=== PATIENT | male | born 1965 | race African-American/Black ===

== ENCOUNTER 2018-07-14 16:43 | Inpatient (IN) | payer OTHER ==
[2018-07-14 17:42] VITALS: BMI 35.2
--- NOTE | 2018-07-14 20:21 | HP ---
CIWA Score Nausea/Vomitin Muscle Tremors: 3 Anxiety: 2 Agitation: 2 Paroxysmal Sweats: 2 Orientation: 0-Oriented Tacttile Disturbances: 2-Mild Itch/Numbness/Burn Auditory Disturbances: 2-Mild Harshness/Frighten Visual Disturbances: 1-Very Mild Sensitivity Headache: 1-Very Mild CIWA-Ar Total Score: 18 - Admission Criteria [facility]ASAS Guidelines: Admission for Medically Managed Detox: Requires at least one of the followin. CIWA greater than 12 2. Seizures within the past 24 hours 3. Delirium tremens within the past 24 hours 4. Hallucinations within the past 24 hours 5. Acute intervention needed for co occurring medical disorder 6. Acute intervention needed for co occurring psychiatric disorder 7. Severe withdrawal that cannot be handled at a lower level of care (continued vomiting, continued diarrhea, abnormal vital signs) requiring intravenous medication and/or fluids 8. Admission ROS [facility] - HPI Chief Complaint: DEPENDENT ON ETOH, CRACK AND MARIJUANA Allergies/Adverse Reactions: Allergies Allergy/AdvReac Type Severity Reaction Status Date / Time No Known Allergies Allergy Verified 11/15/11 17:15 History of Present Illness: THE PT. IS REQUESTING ADMISSION TO THE DETOX UNIT AND CAME FOR H AND PE Exam Limitations: No Limitations - Ebola screening Have you traveled outside of the country in the last 21 days: No Have you had contact with anyone from an Ebola affected area: No Have you been sick,other than usual withdrawal symptoms: No Do you have a fever: No - Review of Systems Constitutional: See HPI, Malaise, Weakness EENT: reports: See HPI Respiratory: reports: See HPI, Wheezing Cardiac: reports: See HPI, Syncope GI: reports: See HPI, Nausea, Abdominal cramping : reports: See HPI Musculoskeletal: reports: See HPI, Muscle Pain, Muscle Weakness Integumentary: reports: See HPI, Sweating Neuro: reports: See HPI, Headache, Tremors, Weakness Hematology: reports: See HPI Psychiatric: reports: Judgement Intact, Orientated x3, Anxious, Depressed Patient History - Patient Medical History Hx Asthma: Yes (Pt is on MDI for asthma.) Hx Chronic Obstructive Pulmonary Disease (COPD): No Hx Cardiac Disorders: No Hx Hypertension: Yes Hx Hypercholesterolemia: Yes Hx Pacemaker: No HX Cerebrovascular Accident: No Hx Seizures: No Hx Dementia: No Hx Diabetes: No Hx Gastrointestinal Disorders: Yes (GERD) Hx Liver Disease: No Hx Genitourinary Disorders: No Hx Sexually Transmitted Disorders: No Hx Renal Disease (ESRD): No Hx Thyroid Disease: No Hx Human Immunodeficiency Virus (HIV): No Hx Hepatitis C: No Hx Depression: Yes (AND ANXIETY) Hx Suicide Attempt: No Hx Schizophrenia: No - Patient Surgical History Past Surgical History: Yes Hx Neurologic Surgery: No Hx Cataract Extraction: No Hx Cardiac Surgery: No Hx Lung Surgery: No Hx Breast Surgery: No Hx Breast Biopsy: No Hx Abdominal Surgery: Yes (umb hernia repair in 2005) Hx Appendectomy: No Hx Cholecystectomy: No Hx Genitourinary Surgery: No Hx Section: No Hx Orthopedic Surgery: No Anesthesia Reaction: No - Smoking Cessation Smoking history: Unknown if ever smoked Have you smoked in the past 12 months: Yes Aproximately how many cigarettes per day: 10 Hx Chewing Tobacco Use: No Initiated information on smoking cessation: Yes 'Breaking Loose' booklet given: 07/14/18 - Substance & Tx. History Hx Alcohol Use: Yes Hx Substance Use: Yes Substance Use Type: Alcohol, Cocaine, Marijuana - Substances Abused Alcohol Route: Oral Frequency: Daily Amount used: BEER 24 CANS/VODKA 2 P/D Age of first use: 19 Date of Last Use: 07/14/18 Crack Route: Smoking Frequency: Daily Amount used: $200-300/D Age of first use: 17 Date of Last Use: 07/14/18 Marijuana/Hashish Route: Smoking Frequency: 1-2 times per week Amount used: 2-3 B/D Age of first use: 17 Date of Last Use: 07/12/18 Family Disease History - Family Disease History Family Disease History: Other: Mother (HAD CVA AND ) Admission Physical Exam [facility] - Vital Signs Vital Signs: Vital Signs - 24 hr 07/14/18 17:41 Temperature 96.7 F L Pulse Rate 74 Respiratory 18 Rate Blood Pressure 155/97 - Physical General Appearance: Yes: No Apparent Distress, Nourished, Appropriately Dressed , Obese, Tremorous, Anxious HEENTM: Yes: Hearing grossly Normal, Normocephalic, Normal Voice, GIOVANA, Pharynx Normal Respiratory: Yes: Chest Non-Tender, Lungs Clear, Normal Breath Sounds, No Respiratory Distress, No Accessory Muscle Use Neck: Yes: No masses,lesions,Nodules, Supple, Trachea in good position Breast: Yes: Breast Exam Deferred, Axillae without masses Cardiology: Yes: Regular Rhythm, Regular Rate, S1, S2 Abdominal: Yes: Normal Bowel Sounds, Non Tender, Protuberent Back: Yes: Normal Inspection Musculoskeletal: Yes: full range of Motion, Gait Steady, Pelvis Stable, Muscle Pain, Muscle weakness Extremities: Yes: Normal Capillary Refill, Normal Range of Motion, Non-Tender, Tremors Neurological: Yes: manager photography II-XII NML intact, Fully Oriented, Alert, Motor Strength 5/5, Normal Response, Depressed Affect Integumentary: Yes: Normal Color, Warm, Moist Lymphatic: Yes: Within Normal Limits - Diagnostic (1) EtOH dependence Current Visit: Yes Status: Chronic Qualifiers: Substance use status: uncomplicated Qualified Code(s): F10.20 - Alcohol dependence, uncomplicated (2) Cocaine dependence Current Visit: Yes Status: Chronic Qualifiers: Substance use status: uncomplicated Qualified Code(s): F14.20 - Cocaine dependence, uncomplicated (3) Cannabis dependence Current Visit: Yes Status: Chronic (4) HTN (hypertension) Current Visit: Yes Status: Acute Qualifiers: Hypertension type: essential hypertension Qualified Code(s): I10 - Essential (primary) hypertension (5) Hypercholesteremia Current Visit: Yes Status: Chronic (6) Asthma Current Visit: Yes Status: Chronic Qualifiers: Asthma severity: unspecified severity (7) Anxiety and depression Current Visit: Yes Status: Chronic (8) Nicotine dependence Current Visit: Yes Status: Acute Qualifiers: Nicotine product type: cigarettes (9) Obesity Current Visit: Yes Status: Chronic Qualifiers: Obesity type: unspecified obesity type (10) GERD (gastroesophageal reflux disease) Current Visit: Yes Status: Chronic Qualifiers: Esophagitis presence: esophagitis presence not specified Qualified Code(s) : K21.9 - Gastro-esophageal reflux disease without esophagitis Cleared for Admission [facility] - Detox or Rehab S Level of Care: Medically Supervised Detox Regimen/Protocol: Librium S Breath Alcohol Content Breath Alcohol Content: 0 Urine Drug Screen - Results Drug Screen Negative: No Urine Drug Screen Results: DUNIA-Cocaine, BZO-Benzodiazepines Inpatient Rehab Admission - Rehab Decision to Admit Inpatient rehab admission?: No
[2018-07-14] MEDS ORDERED: MAGNESIUM HYDROX 2400MG/30ML ORAL SUSPENSION 30 ML CUP PO PRN (20:30)
[2018-07-14] MEDS ORDERED: MAG HYDROX/AL HYDROX/SIMETH 30 ML UNIT-DOSE CUP PO PRN (20:30)
[2018-07-14] MEDS ORDERED: P-EPHED 60MG/TRIPROLIDI 2.5MG TABLET PO PRN (20:30)
[2018-07-14] MEDS ORDERED: hydrOXYzine PAMOATE 50 MG CAPSULE (FP) PO PRN (20:30)
[2018-07-14] MEDS ORDERED: MAGNESIUM CITRATE 300 ML BOTTLE PO PRN (20:30)
[2018-07-14] MEDS ORDERED: guaiFENesin/D-METHORPHAN HB 10 ML UNIT-DOSE CUPS PO PRN (20:30)
[2018-07-14] MEDS ORDERED: LOPERAMIDE HCL 2 MG CAPSULE PO PRN (20:30)
[2018-07-14] MEDS ORDERED: IBUPROFEN 400 MG TABLET (FP) PO PRN (20:30)
[2018-07-14] MEDS ORDERED: chlordiazePOXIDE HCL 25 MG CAPSULE PO PRN (20:30)
[2018-07-14] MEDS ORDERED: chlordiazePOXIDE HCL 25 MG CAPSULE PO ONE (20:30)
[2018-07-14] MEDS ORDERED: MENTHOL/PHENOL 1 EACH UD MM PRN (20:30)
[2018-07-14] MEDS ORDERED: ACETAMINOPHEN 325 MG TABLET (FP) PO PRN (20:30)
[2018-07-14] MEDS ORDERED: NICOTINE POLACRILEX 2 MG GUM BC PRN (20:30)
[2018-07-14] MEDS ORDERED: ALBUTEROL SO4 2.5/IPRATROPIUM 0.5 INH SOL 3 ML VIAL.NEB. NEB PRN (20:32)
[2018-07-14] MEDS ORDERED: MELATONIN 5 MG TABLETS PO PRN (22:00)
[2018-07-15] MEDS: amLODIPine BESYLATE 5 MG TABLET (FP) PO SCH ×2 (01:56→10:29)
[2018-07-15] MEDS: ATORVASTATIN CA 10 MG TABLET (FP) PO SCH ×2 (01:57→23:38)
[2018-07-15] MEDS: THIAMINE HCL 100 MG TABLET (FP) PO SCH ×2 (01:57→23:38)
[2018-07-15] MEDS: PANTOPRAZOLE 40 MG TABLET (FP) PO SCH ×2 (01:57→10:29)
[2018-07-15] MEDS: chlordiazePOXIDE HCL 25 MG CAPSULE PO SCH ×5 (01:58→23:38)
[2018-07-15] MEDS: NICOTINE 14 MG/24 HOURS TOPICAL PATCH TD SCH (10:28)
[2018-07-15] MEDS: PRENATAL VITAMINS W/ FOLIC ACID TABLET (FP) PO SCH (10:29)
[2018-07-15 10:56] LABS: HEMATOCRIT 39.5 % (35.4-49); HEMOGLOBIN 13.1 GM/dL (11.7-16.9); MCH 31.7 pg (25.7-33.7); MCHC 33.1 g/dl (32.0-35.9); MEAN CELL VOLUME 95.7 fl (80-96); MEAN PLT VOLUME 8.7 fl (7.5-11.1); PLATELET COUNT 333 K/MM3 (134-434); RBC 4.13 M/mm3 (4.00-5.60); RDW 14.2 % (11.9-15.9)
--- NOTE | 2018-07-15 11:01 | CONSULT ---
[facility] Psychiatric Consult - Data Date of interview: 07/15/18 Admission source: [facility] Identifying data: Readmission to [facility] for this 53 y/o AA male self- referred for detoxification (cocaine, alcohol, cannabis). Interviewed at [address] [place] [address]. Patient is single without dependents, homeless, unemployed and supported on welfare. Substance Abuse History: Confirmed by the patient in this interview. Detailsin current HS report as follows : Smoking history: Unknown if ever smoked. Have you smoked in the past 12 months: Yes. Aproximately how many cigarettes per day : 10. Hx Chewing Tobacco Use: No. Initiated information on smoking cessation: Yes. 'Breaking Loose' booklet given: 07/14/18. - Substance & Tx. History. Hx Alcohol Use: Yes. Hx Substance Use: Yes. Substance Use Type: Alcohol, Cocaine , Marijuana. - Substances Abused. Alcohol. Route: Oral. Frequency: Daily. Amount used: BEER 24 CANS/VODKA 2 P/D. Age of first use: 19. Date of Last Use: 07/14/18. Crack. Route: Smoking. Frequency: Daily. Amount used : $200-300/D. Age of first use: 17. Date of Last Use: 07/14/18. Marijuana/ Hashish. Route: Smoking. Frequency: 1-2 times per week. Amount used: 2-3 B/ D. Age of first use: 17. Date of Last Use: 07/12/18 Medical History: Remarkable for chronic lumbar pain, bronchial asthma, GERD, hypertension, dyslipidemia and a distant history of umbilical herniorraphy (2005 ). Psychiatric History: No reported history of psychiatric hospitalizations. Patient states that he has been diagnosed with MDD and Schizophrenia. Has no recall of medications. Mr Villalta reports complete non-adherence to psychotropics. Has no contact with psychiatric [employer]PD care providers. No affiliation with any outpatient program in the community. Denies history of suicide attempts. Physical/Sexual Abuse/Trauma History: Patient denies. Additional Comment: Urine Drug Screen Results: DUNIA-Cocaine, BZO- Benzodiazepines. Noted. Mental Status Exam - Mental Status Exam Alert and Oriented to: Time, Place, Person Cognitive Function: Good Patient Appearance: Unkempt, Disheveled Mood: Nervous, Withdrawn Affect: Mood Congruent Patient Behavior: Fatigued, Cooperative Speech Pattern: Clear Voice Loudness: Normal Thought Process: Goal Oriented Thought Disorder: Not Present Hallucinations: Denies Suicidal Ideation: Denies Homicidal Ideation: Denies Insight/Judgement: Poor Sleep: Well Appetite: Good Muscle strength/Tone: Normal Gait/Station: Normal Psychiatric Findings - Problem List ([place] 1, 2,3) (1) Alcohol dependence Current Visit: Yes Status: Chronic (2) Cocaine dependence Current Visit: Yes Status: Chronic Qualifiers: Substance use status: uncomplicated Qualified Code(s): F14.20 - Cocaine dependence, uncomplicated (3) Cannabis dependence Current Visit: Yes Status: Chronic (4) Nicotine dependence Current Visit: Yes Status: Chronic Qualifiers: Nicotine product type: cigarettes (5) Substance induced mood disorder Current Visit: Yes Status: Chronic - Initial Treatment Plan Initial Treatment Plan: Psychoeducation. Sleep hygiene. Detoxification. Observation.
[2018-07-15 11:06] LABS: ALBUMIN 2.8 g/dl (3.4-5.0); ALK PHOS 100 U/L (45-117); ANION GAP 6 MMOL/L (8-16); BILIRUBIN,TOTAL 0.3 mg/dL (0.2-1); BLOOD UREA NITROGEN 11 mg/dL (7-18); CALCIUM 8.1 mg/dL (8.5-10.1); CHLORIDE 104 mmol/L (98-107); CO2 28 mmol/L (21-32); CREATININE 1.1 mg/dL (0.55-1.3); GLUCOSE,RANDOM 100 mg/dL (74-106); POTASSIUM 3.8 mmol/L (3.5-5.1); SGOT/AST 30 U/L (15-37); SGPT/ALT 51 U/L (13-61); SODIUM 138 mmol/L (136-145); TOT PROT 6.3 g/dl (6.4-8.2)
--- NOTE | 2018-07-15 14:38 | PN ---
[facility] CIWA - CIWA Score Nausea/Vomitin-Mild Nausea/No Vomiting Muscle Tremors: 3 Anxiety: 3 Agitation: 3 Paroxysmal Sweats: 1-Minimal Palms Moist Orientation: 1-Uncertain about Date Tacttile Disturbances: 0-None Auditory Disturbances: 0-None Visual Disturbances: 0-None Headache: 2-Mild CIWA-Ar Total Score: 14 S Progress Note (SOAP) Subjective: tremor sweating restlessness anxiety Objective: 07/15/18 14:39 Vital Signs Temperature 97.5 F L 07/15/18 13:04 Pulse Rate 89 07/15/18 13:04 Respiratory Rate 20 07/15/18 13:04 Blood Pressure 148/84 07/15/18 13:04 O2 Sat by Pulse Oximetry (%) Laboratory Last Values WBC 8.0 K/mm3 (4.0-10.0) 07/15/18 08:10 RBC 4.13 M/mm3 (4.00-5.60) 07/15/18 08:10 Hgb 13.1 GM/dL (11.7-16.9) 07/15/18 08:10 Hct 39.5 % (35.4-49) D 07/15/18 08:10 MCV 95.7 fl (80-96) 07/15/18 08:10 MCH 31.7 pg (25.7-33.7) 07/15/18 08:10 MCHC 33.1 g/dl (32.0-35.9) 07/15/18 08:10 RDW 14.2 % (11.9-15.9) D 07/15/18 08:10 Plt Count 333 K/MM3 (134-434) 07/15/18 08:10 MPV 8.7 fl (7.5-11.1) 07/15/18 08:10 Sodium 138 mmol/L (136-145) 07/15/18 08:10 Potassium 3.8 mmol/L (3.5-5.1) 07/15/18 08:10 Chloride 104 mmol/L (98-107) 07/15/18 08:10 Carbon Dioxide 28 mmol/L (21-32) 07/15/18 08:10 Anion Gap 6 MMOL/L (8-16) L 07/15/18 08:10 BUN 11 mg/dL (7-18) 07/15/18 08:10 Creatinine 1.1 mg/dL (0.55-1.3) 07/15/18 08:10 Creat Clearance w eGFR > 60 (>60) 07/15/18 08:10 Random Glucose 100 mg/dL (74-106) 07/15/18 08:10 Calcium 8.1 mg/dL (8.5-10.1) L 07/15/18 08:10 Total Bilirubin 0.3 mg/dL (0.2-1) 07/15/18 08:10 AST 30 U/L (15-37) 07/15/18 08:10 ALT 51 U/L (13-61) 07/15/18 08:10 Alkaline Phosphatase 100 U/L (45-117) 07/15/18 08:10 Total Protein 6.3 g/dl (6.4-8.2) L 07/15/18 08:10 Albumin 2.8 g/dl (3.4-5.0) L 07/15/18 08:10 RPR Titer Nonreactive (NONREACTIVE) 07/15/18 08:10 lab noted Assessment: 07/15/18 14:42 withdrawal sx hypertension Plan: continue detox
[2018-07-15] MEDS ORDERED: amLODIPine BESYLATE 5 MG TABLET (FP) PO SCH ×2 (14:43→14:45)
[2018-07-15] MEDS ORDERED: amLODIPine BESYLATE 5 MG TABLET (FP) PO ONE (22:00)
[2018-07-16] MEDS: chlordiazePOXIDE HCL 25 MG CAPSULE PO SCH ×3 (05:33→17:52)
--- NOTE | 2018-07-16 10:10 | PN ---
S CIWA - CIWA Score Nausea/Vomitin-Mild Nausea/No Vomiting Muscle Tremors: 3 Anxiety: 2 Agitation: 2 Paroxysmal Sweats: 1-Minimal Palms Moist Orientation: 1-Uncertain about Date Tacttile Disturbances: 0-None Auditory Disturbances: 0-None Visual Disturbances: 0-None Headache: 2-Mild CIWA-Ar Total Score: 12 [facility] Progress Note (SOAP) Subjective: tremor sweating restlessness Objective: 07/16/18 10:09 Vital Signs Temperature 97.9 F 07/16/18 09:01 Pulse Rate 73 07/16/18 09:01 Respiratory Rate 18 07/16/18 09:01 Blood Pressure 146/82 07/16/18 09:01 O2 Sat by Pulse Oximetry (%) Laboratory Last Values WBC 8.0 K/mm3 (4.0-10.0) 07/15/18 08:10 RBC 4.13 M/mm3 (4.00-5.60) 07/15/18 08:10 Hgb 13.1 GM/dL (11.7-16.9) 07/15/18 08:10 Hct 39.5 % (35.4-49) D 07/15/18 08:10 MCV 95.7 fl (80-96) 07/15/18 08:10 MCH 31.7 pg (25.7-33.7) 07/15/18 08:10 MCHC 33.1 g/dl (32.0-35.9) 07/15/18 08:10 RDW 14.2 % (11.9-15.9) D 07/15/18 08:10 Plt Count 333 K/MM3 (134-434) 07/15/18 08:10 MPV 8.7 fl (7.5-11.1) 07/15/18 08:10 Sodium 138 mmol/L (136-145) 07/15/18 08:10 Potassium 3.8 mmol/L (3.5-5.1) 07/15/18 08:10 Chloride 104 mmol/L (98-107) 07/15/18 08:10 Carbon Dioxide 28 mmol/L (21-32) 07/15/18 08:10 Anion Gap 6 MMOL/L (8-16) L 07/15/18 08:10 BUN 11 mg/dL (7-18) 07/15/18 08:10 Creatinine 1.1 mg/dL (0.55-1.3) 07/15/18 08:10 Creat Clearance w eGFR > 60 (>60) 07/15/18 08:10 Random Glucose 100 mg/dL (74-106) 07/15/18 08:10 Calcium 8.1 mg/dL (8.5-10.1) L 07/15/18 08:10 Total Bilirubin 0.3 mg/dL (0.2-1) 07/15/18 08:10 AST 30 U/L (15-37) 07/15/18 08:10 ALT 51 U/L (13-61) 07/15/18 08:10 Alkaline Phosphatase 100 U/L (45-117) 07/15/18 08:10 Total Protein 6.3 g/dl (6.4-8.2) L 07/15/18 08:10 Albumin 2.8 g/dl (3.4-5.0) L 07/15/18 08:10 RPR Titer Nonreactive (NONREACTIVE) 07/15/18 08:10 lab noted Assessment: 07/16/18 10:09 alcohol withdrawal sx Plan: continue detox
[2018-07-16] MEDS: NICOTINE 14 MG/24 HOURS TOPICAL PATCH TD SCH (10:33)
[2018-07-16] MEDS: amLODIPine BESYLATE 10 MG TABLET (FP) PO SCH (10:33)
[2018-07-16] MEDS: PRENATAL VITAMINS W/ FOLIC ACID TABLET (FP) PO SCH (10:33)
[2018-07-16] MEDS: PANTOPRAZOLE 40 MG TABLET (FP) PO SCH (10:33)
[2018-07-16] MEDS: ATORVASTATIN CA 10 MG TABLET (FP) PO SCH (22:52)
[2018-07-16] MEDS: chlordiazePOXIDE 5 MG CAPSULE PO SCH (22:52)
[2018-07-16] MEDS: THIAMINE HCL 100 MG TABLET (FP) PO SCH (22:52)
[2018-07-17] MEDS: chlordiazePOXIDE 5 MG CAPSULE PO SCH ×3 (06:09→17:27)
[2018-07-17] MEDS: amLODIPine BESYLATE 10 MG TABLET (FP) PO SCH (10:16)
[2018-07-17] MEDS: PRENATAL VITAMINS W/ FOLIC ACID TABLET (FP) PO SCH (10:16)
[2018-07-17] MEDS: PANTOPRAZOLE 40 MG TABLET (FP) PO SCH (10:17)
[2018-07-17] MEDS: NICOTINE 14 MG/24 HOURS TOPICAL PATCH TD SCH (10:18)
--- NOTE | 2018-07-17 10:46 | PN ---
[facility] CIWA - CIWA Score Nausea/Vomitin-No Nausea/No Vomiting Muscle Tremors: 2 Anxiety: 3 Agitation: 2 Paroxysmal Sweats: 1-Minimal Palms Moist Orientation: 1-Uncertain about Date Tacttile Disturbances: 0-None Auditory Disturbances: 0-None Visual Disturbances: 0-None Headache: 1-Very Mild CIWA-Ar Total Score: 10 S Progress Note (SOAP) Subjective: patient reported that he has high blood pressure medication at home that he was drinking alcohol and neglected taking the medications feeling better mild tremor less sweating social with peers in day room discuss aftercare with staff Objective: 07/17/18 10:54 Vital Signs Temperature 9807 F H 07/17/18 09:31 Pulse Rate 91 H 07/17/18 09:31 Respiratory Rate 20 07/17/18 09:31 Blood Pressure 155/91 07/17/18 09:31 O2 Sat by Pulse Oximetry (%) Laboratory Last Values WBC 8.0 K/mm3 (4.0-10.0) 07/15/18 08:10 RBC 4.13 M/mm3 (4.00-5.60) 07/15/18 08:10 Hgb 13.1 GM/dL (11.7-16.9) 07/15/18 08:10 Hct 39.5 % (35.4-49) D 07/15/18 08:10 MCV 95.7 fl (80-96) 07/15/18 08:10 MCH 31.7 pg (25.7-33.7) 07/15/18 08:10 MCHC 33.1 g/dl (32.0-35.9) 07/15/18 08:10 RDW 14.2 % (11.9-15.9) D 07/15/18 08:10 Plt Count 333 K/MM3 (134-434) 07/15/18 08:10 MPV 8.7 fl (7.5-11.1) 07/15/18 08:10 Sodium 138 mmol/L (136-145) 07/15/18 08:10 Potassium 3.8 mmol/L (3.5-5.1) 07/15/18 08:10 Chloride 104 mmol/L (98-107) 07/15/18 08:10 Carbon Dioxide 28 mmol/L (21-32) 07/15/18 08:10 Anion Gap 6 MMOL/L (8-16) L 07/15/18 08:10 BUN 11 mg/dL (7-18) 07/15/18 08:10 Creatinine 1.1 mg/dL (0.55-1.3) 07/15/18 08:10 Creat Clearance w eGFR > 60 (>60) 07/15/18 08:10 Random Glucose 100 mg/dL (74-106) 07/15/18 08:10 Calcium 8.1 mg/dL (8.5-10.1) L 07/15/18 08:10 Total Bilirubin 0.3 mg/dL (0.2-1) 07/15/18 08:10 AST 30 U/L (15-37) 07/15/18 08:10 ALT 51 U/L (13-61) 07/15/18 08:10 Alkaline Phosphatase 100 U/L (45-117) 07/15/18 08:10 Total Protein 6.3 g/dl (6.4-8.2) L 07/15/18 08:10 Albumin 2.8 g/dl (3.4-5.0) L 07/15/18 08:10 RPR Titer Nonreactive (NONREACTIVE) 07/15/18 08:10 lab noted Assessment: 07/17/18 10:55 mild withdrawal sx Plan: continue detox
[2018-07-17] MEDS: LISINOPRIL 10 MG TABLET (FP) PO SCH ×2 (13:59→22:27)
[2018-07-17] MEDS: THIAMINE HCL 100 MG TABLET (FP) PO SCH (22:27)
[2018-07-17] MEDS: chlordiazePOXIDE HCL 10 MG CAPSULE PO SCH (22:27)
[2018-07-17] MEDS: ATORVASTATIN CA 10 MG TABLET (FP) PO SCH (22:27)
[2018-07-18] MEDS: chlordiazePOXIDE HCL 10 MG CAPSULE PO SCH (06:27)
[2018-07-18 06:33] VITALS: BP 129/77; PULSE 74; TEMP 98.1
--- NOTE | 2018-07-18 19:04 | DS ---
[facility] Detox Discharge Summary Admission Date: 07/14/18 Discharge Date: 07/18/18 - History Present History: Alcohol Dependence, Cannabis Dependence, Cocaine Dependence Additional Comments: PATIENT GOING TO ATTEND [facility] ([place], [place]) FOR AFTERCARE. PATIENT DECLINED OFFER OF MEDICATION PRESCRIPTION FOR HOME MEDICATION AT TIME OF DISCHARGE FROM DETOX, NOTING THAT HE CURRENTLY HAS ADEQUATE SUPPLIES OF ALL PRESCRIBED HOME MEDICATIONS AT HOME. PATIENT WAS DISCHARGED FROM DETOX UNIT IN STABLE MEDICAL CONDITION. Pertinent Past History: G.E.R.D., HTN, Hypercholesterolemia, Asthma, Nicotine Dependence. - Physical Exam Results Vital Signs: Vital Signs Temperature 98.1 F 07/18/18 06:33 Pulse Rate 74 07/18/18 06:33 Respiratory Rate 18 07/18/18 06:33 Blood Pressure 129/77 07/18/18 06:33 O2 Sat by Pulse Oximetry (%) Pertinent Admission Physical Exam Findings: WITHDRAWAL SYMPTOMS. Laboratory Tests 07/15/18 07/15/18 07/15/18 08:10 08:10 08:10 WBC 8.0 RBC 4.13 Hgb 13.1 Hct 39.5 D MCV 95.7 MCH 31.7 MCHC 33.1 RDW 14.2 D Plt Count 333 MPV 8.7 Sodium 138 Potassium 3.8 Chloride 104 Carbon Dioxide 28 Anion Gap 6 L BUN 11 Creatinine 1.1 Creat Clearance w eGFR > 60 Random Glucose 100 Calcium 8.1 L Total Bilirubin 0.3 AST 30 ALT 51 Alkaline Phosphatase 100 Total Protein 6.3 L Albumin 2.8 L RPR Titer Nonreactive LABS NOTED. - Treatment Hospital Course: Detox Protocol Followed, Detoxed Safely, Responded well, Discharged Condition Good Patient has Accepted a Rehab Referral to: PATIENT GOING TO .[facility] ([place], [place]). - Medication Discharge Medications: Ambulatory Orders Albuterol Sulfate Inhaler - [Ventolin HFA Inhaler -] 1 - 2 inh IH Q4H PRN Amlodipine Besylate 10 mg PO DAILY 07/15/18 Hydrochlorothiazide [Hctz -] 25 mg PO DAILY 07/15/18 Lisinopril [Prinivil] 10 mg PO BID 07/17/18 - Diagnosis (1) HTN (hypertension) Status: Acute Qualifiers: Hypertension type: essential hypertension Qualified Code(s): I10 - Essential (primary) hypertension (2) Asthma Status: Chronic Qualifiers: Asthma severity: unspecified severity Asthma persistence: unspecified Asthma complication type: uncomplicated Qualified Code(s): J45.909 - Unspecified asthma, uncomplicated (3) GERD (gastroesophageal reflux disease) Status: Chronic Qualifiers: Esophagitis presence: esophagitis presence not specified Qualified Code(s) : K21.9 - Gastro-esophageal reflux disease without esophagitis (4) Hypercholesteremia Status: Chronic (5) Nicotine dependence Status: Chronic Qualifiers: Nicotine product type: cigarettes Substance use status: uncomplicated Qualified Code(s): F17.210 - Nicotine dependence, cigarettes, uncomplicated (6) Alcohol dependence Status: Chronic Qualifiers: Substance use status: uncomplicated Qualified Code(s): F10.20 - Alcohol dependence, uncomplicated (7) Cannabis dependence Status: Chronic (8) Cocaine dependence Status: Chronic Qualifiers: Substance use status: uncomplicated Qualified Code(s): F14.20 - Cocaine dependence, uncomplicated (9) Obesity Status: Chronic Qualifiers: Obesity type: unspecified obesity type Obesity classification: adult class 2 (BMI 35 - 39.9) Serious obesity comorbidity presence: unspecified whether serious comorbidity present Body mass index: BMI 35.0-35.9 Qualified Code(s) : E66.9 - Obesity, unspecified; Z68.35 - Body mass index (BMI) 35.0-35.9, adult (10) Substance induced mood disorder Status: Chronic (11) Anxiety and depression Status: Chronic - AMA Did Patient Leave Against Medical Advice: No
== END 2018-07-18 09:10 | disposition home or self-care (01) | DRG 774 ==
LOC: YASAS 16:43 → Y3N 20:52
PROVIDERS: ADMIT Surgery; ATTEND Surgery
PROC: HZ2ZZZZ Detoxification Services for Substance Abuse Treatment (ICD-10-PCS; principal; 2018-07-14)
DX: F10.230 Alcohol dependence with withdrawal, uncomplicated (principal); F14.20 Cocaine dependence, uncomplicated; F12.20 Cannabis dependence, uncomplicated; F17.210 Nicotine dependence, cigarettes, uncomplicated; F19.24 Other psychoactive substance dependence with psychoactive substance-induced mood disorder; F41.8 Other specified anxiety disorders; F32.9 Major depressive disorder, single episode, unspecified; I10 Essential (primary) hypertension; K21.9 Gastro-esophageal reflux disease without esophagitis; E78.00 Pure hypercholesterolemia, unspecified; E66.9 Obesity, unspecified; Z68.35 Body mass index [BMI] 35.0-35.9, adult
CPT/HCPCS: 36415; 80053; 85027; 86593